=== PATIENT | female | born 1990 | race Caucasian/White ===

== ENCOUNTER 2017-07-18 18:05 | Emergency (ER) | payer MEDICAID ==
[2017-07-18] MEDS: ACETAMINOPHEN 325 MG TAB PO (19:43)
[2017-07-18 19:53] LABS: ADD MAN DIFF? NO
[2017-07-18 19:58] LABS: WHITE BLOOD COUNT 8.3 10^3/ul (4.8-10.8)
[2017-07-18 19:58] LABS: BASOPHILS % 0.4 % (0.0-2.0); EOSINOPHILS # 0.3 10^3/ul (0.0-0.5); EOSINOPHILS % 3.5 % (0.0-7.0); HEMATOCRIT 38.9 % (37.0-47.0); HEMOGLOBIN 13.2 g/dl (12.0-16.0); LYMPHOCYTES # 2.4 10^3/ul (0.8-2.9); LYMPHOCYTES % 28.5 % (15.0-51.0); MEAN CORPUSCULAR HEMOGLOBIN 31.1 pg (29.0-33.0); MEAN CORPUSCULAR HGB CONC 33.9 g/dl (32.0-37.0); MEAN CORPUSCULAR VOLUME 91.7 fl (82.0-101.0); MONOCYTE # 0.7 10^3/ul (0.3-0.9); MONOCYTES % 8.6 % (0.0-11.0); NEUTROPHIL # 4.9 10^3/ul (1.6-7.5); NEUTROPHILS % 58.3 % (39.0-77.0); PLATELET COUNT 267 10^3/UL (140-415); RED BLOOD COUNT 4.24 10^6/ul (4.20-5.40); RED CELL DISTRIBUTION WIDTH 13.5 % (11.5-14.5)
[2017-07-18 20:14] LABS: ADD UMIC YES; UR ASCORBIC ACID NEGATIVE (NEGATIVE); UR BILIRUBIN (Dip) NEGATIVE (NEGATIVE); UR BLOOD (Dip) NEGATIVE (NEGATIVE); UR CLARITY CLOUDY (CLEAR); UR COLOR AMBER (YELLOW); UR GLUCOSE (Dip) NEGATIVE (NEGATIVE); UR KETONES (Dip) NEGATIVE (NEGATIVE); UR LEUKOCYTE ESTERASE (Dip) 2+ Leu/ul (NEGATIVE); UR NITRITE (Dip) NEGATIVE (NEGATIVE); UR RBC 2 /HPF (0-5); UR SPECIFIC GRAVITY (Dip) 1.018 (1.003-1.030); UR SQUAMOUS EPITHELIAL CELL FEW /HPF (FEW); UR TOTAL PROTEIN (Dip) NEGATIVE (NEGATIVE); UR UROBILINOGEN (Dip) NEGATIVE (NEGATIVE); UR WBC 13 /HPF (0-5)
[2017-07-18 20:22] LABS: ALANINE AMINOTRANSFERASE 14 IU/L (13-69); ALBUMIN 3.5 g/dl (3.3-4.9); ALKALINE PHOSPHATASE 66 IU/L (42-121); ANION GAP 10 (8-16); ASPARTATE AMINO TRANSFERASE 13 IU/L (15-46); BILIRUBIN,INDIRECT 0.1 mg/dl (0-1.1); BILIRUBIN,TOTAL 0.1 mg/dl (0.2-1.3); BLOOD UREA NITROGEN 8 mg/dl (7-20); CALCIUM 9.1 mg/dl (8.4-10.2); CARBON DIOXIDE 26 mmol/L (21-31); CHLORIDE 109 mmol/L (97-110); CREATININE 0.44 mg/dl (0.44-1.00); GLUCOSE 94 mg/dl (70-220); LIPASE 65 U/L (23-300); POTASSIUM 3.7 mmol/L (3.5-5.1); SODIUM 141 mmol/L (135-144); TOTAL PROTEIN 6.4 g/dl (6.1-8.1)
[2017-07-18] MEDS ORDERED: ONDANSETRON (ODT) 4 MG TAB ODT (20:55)
== END 2017-07-18 21:39 | disposition home or self-care (01) ==
LOC: E/R 18:05 → FTE 21:39
DX: O26.891 Other specified pregnancy related conditions, first trimester (principal); R51 Headache; R10.2 Pelvic and perineal pain; Z3A.14 14 weeks gestation of pregnancy
CPT/HCPCS: 76801; 80053; 81001; 83690; 84702; 85025; 86900; 86901; 99284-25

== ENCOUNTER 2017-11-05 15:41 | Emergency (ER) | payer MEDICAID | END 2017-11-05 19:05 | disposition home or self-care (01) | LOC: FTE 15:41 | DX: H60.91 Unspecified otitis externa, right ear (principal) | CPT/HCPCS: 99283; Z7502 ==

== ENCOUNTER 2018-01-10 18:17 | Inpatient (IN) | payer MEDICAID ==
[2018-01-10] MEDS ORDERED: LIDOCAINE 1% (MPF) 30 ML INJ INJ (19:00)
[2018-01-10] MEDS ORDERED: OXYTOCIN 30 UNITS/LR 500 ML IV ×3 (19:00)
[2018-01-10] MEDS ORDERED: CARBOPROST 250 MCG INJ IM (19:00)
[2018-01-10] MEDS ORDERED: BUTORPHANOL 2 MG INJ IV (19:00)
[2018-01-10] MEDS ORDERED: BUTORPHANOL 1 MG INJ IV (19:00)
[2018-01-10] MEDS ORDERED: MISOPROSTOL 200 MCG TAB PR (19:00)
[2018-01-10] MEDS ORDERED: METHYLERGONOVINE 0.2 MG INJ IM (19:00)
[2018-01-10] MEDS: LACTATED RINGER'S 1,000 ML IV* ×2 (19:41→20:16)
[2018-01-10 19:43] LABS: ADD MAN DIFF? NO
[2018-01-10 19:45] LABS: WHITE BLOOD COUNT 9.1 10^3/ul (4.8-10.8)
[2018-01-10 19:45] LABS: BASOPHILS % 0.2 % (0.0-2.0); EOSINOPHILS # 0.2 10^3/ul (0.0-0.5); EOSINOPHILS % 1.8 % (0.0-7.0); HEMATOCRIT 36.6 % (37.0-47.0); HEMOGLOBIN 12.5 g/dl (12.0-16.0); LYMPHOCYTES # 2.2 10^3/ul (0.8-2.9); LYMPHOCYTES % 24.2 % (15.0-51.0); MEAN CORPUSCULAR HGB CONC 34.2 g/dl (32.0-37.0); MEAN CORPUSCULAR VOLUME 93.6 fl (82.0-101.0); MEAN PLATELET VOLUME 9.8 fl (7.4-10.4); MONOCYTE # 0.8 10^3/ul (0.3-0.9); MONOCYTES % 8.2 % (0.0-11.0); NEUTROPHIL # 5.9 10^3/ul (1.6-7.5); NEUTROPHILS % 65.1 % (39.0-77.0); PLATELET COUNT 225 10^3/UL (140-415); RED BLOOD COUNT 3.91 10^6/ul (4.20-5.40); RED CELL DISTRIBUTION WIDTH 13.4 % (11.5-14.5)
[2018-01-10 20:05] LABS: INR 0.88; PARTIAL THROMBOPLASTIN TIME 27.8 Sec (23.0-35.0); PT RATIO 0.9
[2018-01-10] MEDS: AMPICILLIN 2 GM/NS (PMX) 100 ML IV (20:15)
[2018-01-10 20:34] LABS: HEPATITIS B SURFACE ANTIGEN NEGATIVE (NEGATIVE)
[2018-01-10] MEDS ORDERED: FENTAnyl 2MCG/ML-ROPIV 0.2% 100 ML (20:49)
[2018-01-10] MEDS ORDERED: EPHEDrine SULFATE 50 MG/5 ML SYG (20:57)
[2018-01-10] MEDS ORDERED: ONDANSETRON 4 MG INJ IV (21:30)
[2018-01-10] MEDS ORDERED: NALBUPHINE HCL (10 MG/1 ML) INJ IV (21:30)
[2018-01-10] MEDS ORDERED: NALOXONE (0.4 MG/ML) INJ IV (21:30)
[2018-01-11] MEDS: AMPICILLIN 1 GM/NS (PMX) 50 ML IV ×3 (00:12→06:55)
[2018-01-11] MEDS: LACTATED RINGER'S 1,000 ML IV* (04:40)
[2018-01-11] MEDS: FENTAnyl 2MCG/ML-ROPIV 0.2% 100 ML BAG EPI (05:08)
[2018-01-11] MEDS: OXYTOCIN 30 UNITS/LR 500 ML IV (07:56)
[2018-01-11] MEDS: IBUPROFEN 600 MG TAB PO ×4 (08:03→23:54)
[2018-01-11] MEDS ORDERED: OXYTOCIN 30 UNITS/LR 500 ML IV ×2 (08:57→09:30)
[2018-01-11] MEDS ORDERED: CARBOPROST 250 MCG INJ IM (09:30)
[2018-01-11] MEDS ORDERED: METHYLERGONOVINE 0.2 MG INJ IM (09:30)
[2018-01-11] MEDS: FOLIC ACID 1 MG TAB PO (12:02)
[2018-01-11] MEDS: SENNA/DOCUSATE NA (8.6MG/50MG) TAB PO ×2 (12:03→21:10)
[2018-01-11] MEDS: ACETAMINOPHEN 500 MG TAB PO ×2 (12:03→19:51)
[2018-01-11] MEDS: LANOLIN 7 GM TUBE TOP (12:04)
[2018-01-11] MEDS: BENZOCAINE 20% 56 ML SPRAY TOP (12:05)
[2018-01-11] MEDS: WITCH HAZEL/GLYCERIN PAD PR (12:06)
[2018-01-11 22:29] LABS: RAPID PLASMA REAGIN NONREACTIVE (NR)
[2018-01-12] MEDS: ACETAMINOPHEN 500 MG TAB PO ×2 (01:15→08:49)
[2018-01-12] MEDS: IBUPROFEN 600 MG TAB PO ×4 (05:42→23:35)
[2018-01-12 07:50] LABS: ADD MAN DIFF? NO
[2018-01-12 07:52] LABS: WHITE BLOOD COUNT 8.5 10^3/ul (4.8-10.8)
[2018-01-12 07:52] LABS: BASOPHILS % 0.1 % (0.0-2.0); EOSINOPHILS # 0.2 10^3/ul (0.0-0.5); EOSINOPHILS % 2.7 % (0.0-7.0); HEMATOCRIT 34.5 % (37.0-47.0); HEMOGLOBIN 11.5 g/dl (12.0-16.0); LYMPHOCYTES # 2.1 10^3/ul (0.8-2.9); LYMPHOCYTES % 24.8 % (15.0-51.0); MEAN CORPUSCULAR HEMOGLOBIN 31.8 pg (29.0-33.0); MEAN CORPUSCULAR HGB CONC 33.3 g/dl (32.0-37.0); MEAN CORPUSCULAR VOLUME 95.3 fl (82.0-101.0); MONOCYTE # 0.7 10^3/ul (0.3-0.9); MONOCYTES % 8.3 % (0.0-11.0); NEUTROPHIL # 5.4 10^3/ul (1.6-7.5); NEUTROPHILS % 63.7 % (39.0-77.0); PLATELET COUNT 228 10^3/UL (140-415); RED BLOOD COUNT 3.62 10^6/ul (4.20-5.40); RED CELL DISTRIBUTION WIDTH 13.6 % (11.5-14.5)
[2018-01-12] MEDS: FOLIC ACID 1 MG TAB PO (08:30)
[2018-01-12] MEDS: SENNA/DOCUSATE NA (8.6MG/50MG) TAB PO ×2 (08:30→21:56)
[2018-01-12] MEDS: INFLUENZA VIRUS VACCINE 0.5 ML (DISPENSING) IM* (08:50)
[2018-01-13] MEDS: IBUPROFEN 600 MG TAB PO ×2 (05:42→12:17)
[2018-01-13] MEDS: MEASLES,MUMPS,RUBELLA VACCINE INJ SC* (09:00)
[2018-01-13] MEDS: FOLIC ACID 1 MG TAB PO (09:37)
[2018-01-13] MEDS: SENNA/DOCUSATE NA (8.6MG/50MG) TAB PO (09:37)
== END 2018-01-13 13:05 | disposition home or self-care (01) | DRG 807 ==
LOC: OBT 18:17 → PP1 01-11 09:15 → L-D 18:18 → OBT 18:18 → L-D 18:27
PROVIDERS: Obstetrics & Gynecology
PROC: 10E0XZZ Delivery of Products of Conception, External Approach (ICD-10-PCS; principal; 2018-01-11)
PROC: 0HQ9XZZ Repair Perineum Skin, External Approach (ICD-10-PCS; 2018-01-11)
DX: O70.0 First degree perineal laceration during delivery (principal); Z37.0 Single live birth; Z3A.39 39 weeks gestation of pregnancy
CPT/HCPCS: 62319; 76815; 76818; 85025; 85610; 85730; 86592; 86850; 86900; 86901; 87340; 90686

== ENCOUNTER 2018-06-20 19:30 | Emergency (ER) | payer MEDICAID ==
[2018-06-20 21:49] LABS: URINE BLOOD (Dip) POC Negative (NEGATIVE); URINE GLUCOSE (Dip) POC Negative (NEGATIVE); URINE KETONES (Dip) POC Negative (NEGATIVE); URINE LEUKOCYTE EST (Dip) POC Negative (NEGATIVE); URINE NITRITE (Dip) POC Negative (NEGATIVE); URINE TOTAL PROTEIN POC Negative (NEGATIVE)
[2018-06-20] MEDS: ONDANSETRON (ODT) 4 MG TAB ODT (21:56)
[2018-06-20] MEDS: KETOROLAC 30 MG INJ IM (21:56)
== END 2018-06-20 22:14 | disposition home or self-care (01) ==
LOC: FTE 19:30
DX: R51 Headache (principal); R11.0 Nausea
CPT/HCPCS: 81003; 81025; 96372; 99284-25

== ENCOUNTER 2018-08-12 03:40 | Emergency (ER) | payer MEDICAID | END 2018-08-12 04:54 | disposition home or self-care (01) | LOC: FTE 03:40 | DX: J03.90 Acute tonsillitis, unspecified (principal); H60.91 Unspecified otitis externa, right ear | CPT/HCPCS: 99283; Z7502 ==